=== PATIENT | female | born 1975 | race Caucasian/White ===

== ENCOUNTER 2017-02-07 22:08 | Emergency (ER) | payer OTHER ==
--- NOTE | ~2017-02-07 | US85 ---
[facility] A Service of [facility] & [facility] RADIOLOGY TEXT RESULTS PATIENT: LONI BLACKMAN LOCATION: [facility] : 77 UNIT #: [id number] AGE: [address]: Jeremiah Muñoz MD SEX: F ORDER DR: [id number] [facility] [address] [place], [place] [address] [id number] MR#: [id number] Acc #: [id number] NAME: LONI BLACKMAN : 1975 SEX: F STUDY DATE/TIME: 02/07/2017 UNIT: [facility]UR[facility] ROOM: STUDY DESCRIPTION: [employer] Attending Physician: Osvaldo Muñoz M.D. Ordering Physician: Ed Arthur Toledo M.D. Primary Care Physician: Obed Thompson M.D. MEDICAL IMAGING REPORT This report is preliminary unless electronic signature is present EXAM Left leg vein Doppler ultrasound, 02/07. INDICATIONS Painful left thigh lumps with a syncopal episode 2 hours ago. FINDINGS Fernandez-scale, color flow, and spectral Doppler waveform analysis was performed of the venous system of the left leg. All the venous structures demonstrate normal compressibility and color flow. No superficial or deep venous thrombosis identified. In the area of palpable concern in the upper thigh, there is a hyperechoic subcutaneous lesion measuring about 14 mm in greatest dimension. This has the appearance of a lipoma although it could potentially reflect a hematoma in the appropriate clinical setting. Smaller less well defined lesions may be present in the area as well. IMPRESSION 1. No superficial or deep venous thrombosis in the left leg. 2. Subcutaneous hyperechoic lesions in the fat have the appearance of small lipomas. There are at least 2, the larger of which measures up to 14 mm in size. Differential consideration would include a hematoma, but is felt to be less likely. Dictated by... Farooq Cosme Jr., M.D. THIS IS AN ELECTRONICALLY VERIFIED REPORT Farooq Cosme Jr., M.D. at 02/08/2017 11:24 AM JENNIFER/lenora TD: 02/08/2017 06:15 JOB #: [id number] [facility] A Service of [facility] RADIOLOGY TEXT RESULTS PATIENT: LONI BLACKMAN LOCATION: [facility] : 77 UNIT #: [id number] AGE: [address]: Jeremiah Muñoz MD SEX: F ORDER DR: MEDICAL IMAGING REPORT Page 1 of 1 COPY
--- NOTE | ~2017-02-07 | EKG ---
PATIENT: LONI BLACKMAN UNIT #: [id number] Ventricular Rate: 62 BPM Atrial Rate: 62 BPM P-R Interval: 148 ms QRS Duration: 76 ms Q-T Interval: 404 ms QTC Calculation(Bezet): 410 ms P [place]: 46 degrees Calculated R [place]: 49 degrees Calculated T [place]: 35 degrees Diagnosis Line: Normal sinus rhythm Diagnosis Line: Normal ECG Diagnosis Line: No previous ECGs available Diagnosis Line: Confirmed by GILES GUTIERREZ MD ([id number]) on Diagnosis Line: 02/09/2017 2:49:04 PM INTERPRETING MD: [email or web address]
[~2017-02-07 22:08] MED LIST: ALEVE220 M1; ANSAID100 MG PO; AUGMENTIN875 M1 PO; DICLOFENAC PO; HYCODAN60 ML 5MG/ PO; LO/OVRAL-281 TAB PO; LORTAB 5-325 M1 EACH PO; MEDROL DOSEPAK4 MG PO; MULTI VITAMIN1 EACH; NAPROXEN; NAPROXEN PO; NO MEDICATIONS; PERCOCET5/325 PO; PHENERGAN25 MG PO; PROVERA PO; VOLTAREN50 MG PO; VOLTAREN75 MG PO; ZITHROMAX500 MG PO; ZOFRAN ODT4 MG/UDTAB SL; ZOFRAN PO; ZYRTEC PO
[2017-02-07 22:56] LABS: BASOPHIL# 0.1 X10e3 (0-0.3); BASOPHIL% 0.8 % (0-2.5); EOSINOPHIL# 0.3 X10e3 (0-0.7); EOSINOPHIL% 3.9 % (0.0-7.0); HEMATOCRIT 33.9 % (35.0-45.0); HEMOGLOBIN 10.4 gm/dL (12.0-16.0); LYMPHOCYTE# 2.5 X10e3 (1.0-3.5); LYMPHOCYTE% 35.9 % (17.0-45.0); MEAN CELL VOLUME 73.4 FL (83-96); MEAN CORPUSCULAR HEMOGLOBIN 22.5 PG (28-34); MEAN CORPUSCULAR HGB CONC 30.7 g/dL (30-36); MEAN PLATELET VOLUME 8.2 FL (6.5-11.5); MONOCYTE# 0.4 X10e3 (0-1.0); MONOCYTE% 5.5 % (3.0-12.0); NEUTROPHIL# 3.7 X10e3 (1.5-7.1); NEUTROPHIL% 53.9 % (40-75); PLATELET COUNT 270 X10e3 (140-420); RED BLOOD COUNT 4.62 X10e (3.90-5.30); RED CELL DISTRIBUTION WIDTH 18.6 % (11.0-15.5); WHITE BLOOD COUNT 6.9 X10e3 (4.0-10.5)
[2017-02-07 22:58] LABS: DIFF IND NO
[2017-02-07 23:11] LABS: POC - CKMB <1.0 ng/mL (0.0-7.9); POC - TROPONIN <0.05 ng/mL (<=0.05)
[2017-02-07 23:26] LABS: BUN/CREATININE RATIO 13.33; CREATININE SERUM 0.9 mg/dL (0.6-1.4)
[2017-02-07 23:40] LABS: URINE SOURCE CLEAN CATCH
[2017-02-07 23:44] LABS: URINE APPEARANCE CLEAR; URINE BILIRUBIN NEG (NEG); URINE BLOOD 2+ (NEG); URINE COLOR YELLOW; URINE GLUCOSE NEG (NEG); URINE KETONE NEG (NEG); URINE LEUKOCYTE ESTERASE NEG (NEG); URINE NITRATE NEG (NEG); URINE PROTEIN NEG (NEG); URINE UROBILINOGEN 0.2 MG/DL (NEG)
[2017-02-07 23:47] LABS: CULTURE INDICATED? NO; URBCS1 AUWI 0-2 /[HPF] (0-2); URINE BACTERIA AUWI NEG (NEGATIVE); URINE SQUAMOUS EPITHELIAL CELL NONE SEEN /[HPF]; UWBCS1 AUWI 0-2 (0-5)
[2017-02-07 23:54] LABS: AMPHETAMINE NEG (NEG); BARBITURATES NEG (NEG); BENZODIAZEPINES NEG (NEG); COCAINE NEG (NEG); MARIJUANA NEG (NEG); OPIATES NEG (NEG); TRICYCLIC ANTIDEPRESSANTS NEG (NEG); U METHADONE NEG (NEG)
== END 2017-02-08 01:10 | disposition home or self-care (01) ==
LOC: CED 22:08
PROVIDERS: Emergency Medicine
DX: D17.24 Benign lipomatous neoplasm of skin and subcutaneous tissue of left leg (principal); R53.1 Weakness; Z87.442 Personal history of urinary calculi; Z88.2 Allergy status to sulfonamides; Z88.5 Allergy status to narcotic agent
CPT/HCPCS: 36415; 80048; 80307; 81003; 82553; 84484; 85025; 85379; 93005; 93971; 96361; 96374; 99284; J1885